=== PATIENT | female | born 1950 | race Caucasian/White ===

== ENCOUNTER → 2024-11-12 | Outpatient (CLI) | payer MEDICARE, MEDICAID, SELFPAY ==
--- NOTE | 2024-11-12 12:40 | XR_ITS ---
Examination: Bone densitometry Date and time of exam:November 12, 2024 1251 hours INDICATIONS: Menopause age 48 [birth year]2015 years vitamin D 5 years, personal history osteoporosis Technique: Lumbar spine and hip total bone mineralization values of an calculated. Peak reference and age match control results have been displayed. Findings: Lumbar spine total bone mineralization is0.838 gm/cm2. This is 1.9 standard deviations below peak reference. This is 0.6 standard deviations above age-matched controls. Hip total bone mineralization is 0.403 gm/cm2 This is 4.4 standard deviations below peak reference. This is 3.6 standard deviations above age-matched controls Impression: There is osteopenia based on lumbar spine measurements. There is osteoporosis based on hip measurements Lumbar mineralization is decreased 3.3% compared with September 04, 2019 Hip mineralization is decreased 26.4% compared with September 04, 2019
== END | disposition home or self-care (01) ==
PROVIDERS: Referring Provider Physician Assistant; Visit Provider Physician Assistant
DX: M85.88 Other specified disorders of bone density and structure, other site (principal); M81.0 Age-related osteoporosis without current pathological fracture; Z87.81 Personal history of (healed) traumatic fracture
CPT/HCPCS: 77080